=== PATIENT | male | born 1980 | race Hispanic/Latino ===

== ENCOUNTER → 2017-07-13 | Emergency (ER) | payer MEDICAID ==
[~2017-07-13] VITALS: Ht 160 cm; Wt 95.2 kg
[~2017-07-13] MED LIST: CLONAZEPAM0.5 MG PO; PRILOSEC OTC20 MG PO; PROZAC10 MG PO; TESSALON PERLE100 MG PO; VENTOLIN HFA18 GM INH; ZITHROMAX250 MG PO; ZYPREXA2.5 MG PO
== END ==
LOC: ED 03:35
DX: J98.8 Other specified respiratory disorders (principal); B97.89 Other viral agents as the cause of diseases classified elsewhere; R11.2 Nausea with vomiting, unspecified; F32.9 Major depressive disorder, single episode, unspecified; F17.200 Nicotine dependence, unspecified, uncomplicated; Z88.0 Allergy status to penicillin; Z79.899 Other long term (current) drug therapy
CPT/HCPCS: 71046; 99283